=== PATIENT | female | born 1970 | race Caucasian/White ===

== ENCOUNTER 2017-04-10 08:14 | Emergency (ER) | payer SELFPAY ==
[~2017-04-10] VITALS: Ht 165.1 cm; Wt 83.5 kg
[~2017-04-10 08:14] MED LIST: TYLE500T PO
[2017-04-10 08:20] VITALS: BP 126/70; PULSE 77; RESP 16; TEMP 98; O2SAT 100
--- NOTE | 2017-04-10 08:37 | PD ---
HPI Chief Complaint: Eye Problems/Injury Time Seen by Provider: 08:29 Travel History International Travel<30 days: No Contact w/Intl Traveler<30days: No Traveled to known affect area: No History of Present Illness HPI The patient is a 46-year-old female who presents emergency department for right periorbital irritation and pain. The patient states she has some discomfort in the lateral aspect of the right eye near the lateral fold 2 days ago. She did rub her eye a few 2 days ago, now complains of pain and swelling over the affected area. The patient denies any visual acuity changes, does not wear contacts, however, does wear reading glasses intermittently. She denies any photophobia, states the pain is located over the lateral aspect of the eye, worse with palpation. She denies any current itching to the affected area and cannot recall any trauma to the eye. She denies any drainage or tearing from the right eye. She does note swelling above and below the right eye, but denies any fever, chills, or sweats. Symptoms are mild to moderate, there are no alleviating or exacerbating factors. PFSH Past Medical History Depression: Yes Diminished Hearing: No Reproductive: Yes (BENIGN UTERINE TUMOR) Respiratory: Yes (BRONCHITIS - ALLERGY RELATED) Tetanus Vaccination: < 5 Years ?: Not : 4 Para: 4 Miscarriage: 0 : 0 Tubal Ligation: Yes Past Surgical History Section: Yes (X 4) Tonsillectomy: Yes Social History Alcohol Use: No Tobacco Use: No Substance Use: No (HX CRACK COCAINE; LAST USED 12/27/07; PT IN [place]) Allergies-Medications (Allergen,Severity, Reaction): Coded Allergies: penicillin G (Unverified Allergy, Unknown, Hives, 04/10/17) Reported Meds & Prescriptions Reported Meds & Active Scripts Active No Active Prescriptions or Reported Medications Review of Systems Except as stated in HPI: all other systems reviewed are Neg General / Constitutional: No: Fever Eyes: Positive: Pain, No: Blurred Vision, Photophobia, Drainage, Foreign Body Sensation HENT: Positive: Other (as noted in the history of present illness), No: Headaches, Sore Throat Skin: Positive Other (as noted in the history of present illness) Physical Exam Narrative GENERAL: Awake, alert, pleasant 46-year-old female who appears her stated age and is in no acute respiratory distress. SKIN: Focused skin assessment warm/dry. HEAD: Atraumatic. Normocephalic. EYES: Pupils equal and round. Pupils are 3 mm bilateral and reactive. EOMs are intact. Patient is able to see fingers at a distance of 2 feet without difficulty. He was minimal injection of the lateral aspect of the right eye but no visible foreign bodies. There is some right periorbital edema of the right upper eyelid, lateral right face, and just inferior to the right eye. No palpable abscess or area of fluctuance. ENT: No nasal bleeding or discharge. Mucous membranes pink and moist. NECK: Trachea midline. No JVD. MUSCULOSKELETAL: No obvious deformities. No clubbing. No cyanosis. No edema. NEUROLOGICAL: Awake and alert. No obvious cranial nerve deficits. Motor grossly within normal limits. Normal speech. PSYCHIATRIC: Appropriate mood and affect; insight and judgment normal. Data Data Last Documented VS Vital Signs Date Time Temp Pulse Resp B/P (MAP) Pulse Ox O2 Delivery O2 Flow Rate FiO2 04/10/17 08:20 98.0 77 16 126/70 (88) 100 Orders Orders Proparacaine 0.5% Opth Soln (Alcaine 0.5 (04/10/17 08:45) MDM Medical Decision Making Medical Screen Exam Complete: Yes Emergency Medical Condition: Yes Medical Record Reviewed: Yes Differential Diagnosis Differential diagnosis includes periorbital cellulitis, preseptal cellulitis, foreign body, corneal abrasion, episcleritis, iritis, cellulitis, abscess. Narrative Course One drop of proparacaine was applied to the right eye. The right eye was inspected using fluoroscein staining. There is no obvious uptake to suggest corneal abrasion. I cannot visualize any foreign bodies under magnification. The upper or lower eyelids were everted, I cannot visualize underlying foreign body. The patient does appear to have some right eye irritation with right periorbital swelling, unsure if this is preseptal cellulitis versus atypical episcleritis. The patient was placed on eyedrops and oral antibiotics. She is advised to follow-up with an plate furnace operator if symptoms persist. Diagnosis Primary Impression: Preseptal cellulitis of right eye Patient Instructions: General Instructions Additional Instructions: Medications as directed. Cool compresses to the right eye. Follow-up with ophthalmology if symptoms persist. Med/Other Pt SpecificInfo: Prescription(s) given Scripts Tobramycin Opth Drops (Tobrex Opth Drops) 0.3 % Soln 1 DROP RIGHT EYE Q6H for Infection for 7 Days, #1 BOTTLE 0 Refills Prov: Tico Chavarria MD 04/10/17 Clindamycin (Cleocin) 150 Mg Cap 150 MG PO Q6H for Infection for 7 Days, #28 CAP 0 Refills Prov: Tico Chavarria MD 04/10/17 Disposition: 01 DISCHARGE HOME Condition: Stable Tico Chavarria MD Apr 10, 2017 08:37
[2017-04-10] MEDS ORDERED: PROPARACAINE HCL 0.5% OPHT SOLN 15 ML BTL RIGHT EYE ONE (08:45)
[2017-04-10] MEDS ORDERED: TOBR0.3S RIGHT EYE (08:45)
[2017-04-10] MEDS ORDERED: CLIN150 PO (08:45)
== END 2017-04-10 08:56 | disposition home or self-care (01) ==
LOC: PHED 08:14
DX: L03.213 Periorbital cellulitis (principal)
CPT/HCPCS: 99284